=== PATIENT | female | born 1980 ===

== ENCOUNTER 2017-01-04 12:42 | Emergency (ER) | payer OTHER ==
[2017-01-04 12:47] VITALS: BP 126/80; PULSE 91; RESP 16; TEMP 98.3; O2SAT 99
[2017-01-04] MEDS ORDERED: Naproxen 500 MG TAB PO ONE (12:53)
--- NOTE | 2017-01-04 12:58 | ED PDOC ---
Lower Extremity Pain/Injury Time Seen by Provider: 01/04/17 12:47 Chief Complaint (Nursing): Lower Extremity Problem/Injury Chief Complaint (Provider): Lower Extremity Problem/Injury History Per: Patient History/Exam Limitations: no limitations Additional Complaint(s): George Gracia, 36 year old female presents to the ED for atraumatic right foot pain localized to the bottom of her foot and heel occurring since Friday. The patient reports her pain to worsen with ambulation. She also has been taking Tylenol and Motrin, with minimal relief. The patient denies numbness, tingling, calf pain, or any recent injury to the area. PMD: None provided Past Medical History Reviewed: Historical Data, Nursing Documentation, Vital Signs Vital Signs: Last Vital Signs Temp 98.3 F 01/04/17 12:45 Pulse 91 H 01/04/17 12:45 Resp 16 01/04/17 12:45 BP 126/80 01/04/17 12:45 Pulse Ox 99 01/04/17 12:45 - Family History Family History: States: Unknown Family Hx - Social History Current smoker - smoking cessation education provided: No Ex-Smoker (has not smoked in the last 12 months): No Alcohol: None Drugs: Denies - Home Medications Home Medications: Ambulatory Orders Medication Instructions Recorded Meloxicam [Mobic] 7.5 mg PO DAILY PRN #30 tab 01/04/17 - Allergies Allergies/Adverse Reactions: Allergies Allergy/AdvReac Type Severity Reaction Status Date / Time No Known Allergies Allergy Verified 01/04/17 12:48 Review of Systems ROS Statement: Except As Marked, All Systems Reviewed And Found Negative Musculoskeletal: Positive for: Foot Pain (right foot pain localized to bottom of foot and heel). Negative for: Leg Pain (no right calf pain) Neurological: Negative for: Numbness (and no tingling) Physical Exam - Reviewed Nursing Documentation Reviewed: Yes Vital Signs Reviewed: Yes - Physical Exam Appears: Positive for: Well, Non-toxic, No Acute Distress Head Exam: Positive for: ATRAUMATIC, NORMAL INSPECTION, NORMOCEPHALIC Skin: Positive for: Normal Color (no breaking skin integrity), Warm Pulses-Dorsalis Pedis (L): 2+ Pulses-Dorsalis Pedis (R): 2+ Extremity: Negative for: Tenderness (to bilateral feet, bilateral calves), Pedal Edema (bilaterally), Deformity (to bilateral feet), Swelling (to bilateral feet) - ECG O2 Sat by Pulse Oximetry: 99 (RA) Pulse Ox Interpretation: Normal - Radiology X-Ray: Interpreted by Me (Foot x-ray) X-Ray Interpretation: No Acute Disease Medical Decision Making Medical Decision Making: Impression: Atraumatic right foot pain localized to bottom of foot and heel Plan: * Foot Right 3 Views Routine [RAD] Stat * Naproxen 500 mg PO Once * Reevaluation Scribe Attestation: Documented by Ximena Benton, acting as a scribe for Mikey Bah PA-C. Provider Scribe Attestation: All medical record entries made by the Scribe were at my direction and personally dictated by me. I have reviewed the chart and agree that the record accurately reflects my personal performance of the history, physical exam, medical decision making, and the department course for this patient. I have also personally directed, reviewed, and agree with the discharge instructions and disposition. Disposition - Clinical Impression Clinical Impression: Heel pain - Patient ED Disposition Is Patient to be Admitted: No - Disposition Referrals: [facility] [Outside] [facility] [Outside] Luciano Almonte DPM [Staff Provider] - Disposition: Routine/Home Disposition Time: 13:38 Condition: STABLE Prescriptions: Meloxicam [Mobic] 7.5 mg PO DAILY PRN #30 tab PRN Reason: Pain, Mild (1-3) Instructions: Arthralgia (ED) Print Language: BENINESE
--- NOTE | 2017-01-05 08:40 | RAD ---
PROCEDURE: Right Foot Radiographs. HISTORY: trauma COMPARISON: None. FINDINGS: BONES: Normal. No fracture. JOINTS: Normal. SOFT TISSUES: Normal. OTHER FINDINGS: None. IMPRESSION: Normal right foot radiographs.
== END 2017-01-04 14:10 | disposition home or self-care (01) ==
LOC: H.ER 12:42
DX: M79.671 Pain in right foot (principal)